=== PATIENT | female | born 1995 | race Caucasian/White ===

== ENCOUNTER 2019-08-24 22:55 | Emergency (ER) | payer MEDICAID ==
[~2019-08-24] VITALS: Ht 165.1 cm; Wt 83.9 kg
[2019-08-24 22:55] VITALS: BP 128/76
[~2019-08-24 22:55] MED LIST: FOLI1TAB19; IBUP-2213 PO; PREN-385 PO
--- NOTE | 2019-08-24 22:55 | NUR ---
TO BED # 05 AMBULATORY
--- NOTE | 2019-08-24 22:56 | NUR ---
24 YO FEMALE BIB FAMILY FOR S/P FALL X 1 HOUR. PT AAOX4, PT STATES SHE SLIPPED ON WET FLOOR @ HOME. PT STATES SHE HIT HEAD, R HIP ON FLOOR, AND SCRAPED BILAT SHINS. PT C/O ACHINESS TO HIP AND HEAD. PT STATES DIZZINESS, DENIES LOC AND LIGHT SENSITIVITY. SAFETY PRECAUTIONS IN PLACE. VINH LOCKED IN LOWEST POSITION HX: NONE RX: NONE AX: NONE
--- NOTE | 2019-08-24 23:21 | NUR ---
Dr. Herrera examining patient.
[2019-08-24 23:40] VITALS: BP 129/67
== END 2019-08-24 23:41 | disposition home or self-care (01) ==
LOC: MED 22:55
DX: S00.83XA Contusion of other part of head, initial encounter (principal); Z79.899 Other long term (current) drug therapy; W19.XXXA Unspecified fall, initial encounter; Y93.89 Activity, other specified; Y92.89 Other specified places as the place of occurrence of the external cause; Y99.8 Other external cause status
CPT/HCPCS: 99282